=== PATIENT | female | born 1950 | race Caucasian/White ===

== ENCOUNTER → 2017-03-19 | Outpatient (CLI) | payer OTHER, MEDICARE | LOC: BMCIMAGING 12:10 | PROVIDERS: ATTEND Internal Medicine | DX: Z12.31 Encounter for screening mammogram for malignant neoplasm of breast (principal) | CPT/HCPCS: G0202 ==

== ENCOUNTER → 2017-11-05 | Outpatient (CLI) | payer OTHER, MEDICARE | LOC: BMCIMAGING 15:07 | PROVIDERS: ATTEND Orthopaedic Surgery Hand Surgery | DX: M19.041 Primary osteoarthritis, right hand (principal); R93.6 Abnormal findings on diagnostic imaging of limbs ==

== ENCOUNTER 2019-02-16 11:05 | Observation (INO) | payer MEDICARE, OTHER ==
--- NOTE | 2019-02-16 11:42 | EDPHY ---
General Time Seen by Provider: 02/16/19 11:42 Narrative: CLINICAL IMPRESSION: Cat bite, cellulitis, lymphangitis. ASSESSMENT/PLAN: Patient is a 68-year-old female with no significant medical history who presents to the emergency department with complaints of a cat bite with rapidly progressing redness. Patient is nontoxic-appearing, she is in no acute distress. Physical examination reveals area of erythema and pain overlying the volar aspect of the distal left forearm with cellulitis extending up to elbow. There was no evidence of large gaping wounds, bony involvement or neurovascular compromise. The patient started Augmentin yesterday, has had rapid progression since starting antibiotics. Baseline laboratory studies were obtained and unremarkable, patient was given IV Rocephin and Flagyl in the emergency department. X-ray with no acute findings. The area was marked. She will be admitted to the hospitalist service for further observation management, I spoke directly to Dr. Bello who will be the admitting physician.. DIFFERENTIAL DX: Differential diagnosis including but not limited to abscess, cellulitis, sepsis , systemic infection, necrotizing skin infection. ED COURSE: 1210: Case discussed with Dr. Cordero. 1212: Discussed with Lucio JAFFE hospitalist service, will admit to Dr. Bello CHIEF COMPLAINT: Cat bite, redness and pain HPI: Patient is a 68-year-old female with no significant medical history who presents to the emergency department with complaints of a cat bite, redness and pain. Patient reports she was bit by her cat yesterday morning. She noticed some redness around the site in the evening and went to Urgent Care. Patient was given Augmentin and has taken 2 doses however this morning had a rapid progression upper forearm and into her elbow. She is having increased pain, has not tried taking anything for pain. She denies any fever, nausea, vomiting , chest pain or shortness of breath. She denies any numbness or tingling of the extremity. She is experiencing some decreased range of motion secondary to the discomfort. She has no significant medical history and denies a history of MRSA. PMH: Denies Family History: Not contributory Social History: Occasional alcohol, denies illicit drug use or smoking. REVIEW OF SYSTEMS: All other systems negative Constitutional: No fever, no chills, appetite change. Eyes: No discharge, vision change ENT: No sore throat, congestion, ear pain. Cardiovascular: No chest pain, no palpitations. Respiratory: No cough, no shortness of breath. Gastrointestinal: No abdominal pain, no vomiting, diarrhea. Genitourinary: No hematuria, dysuria, flank pain. Musculoskeletal: Left wrist pain. Skin: Redness to left wrist. No rashes, color change. Neurological: No headache, dizziness, weakness. PHYSICAL EXAM: General Appearance: Well-appearing, no acute distress and not toxic-appearing. HENT: Normocephalic, atraumatic. Bilateral external ears are normal. Bilateral tympanic membranes are normal with pearly torres reflex. Nares are clear, mucosa is pink. Oropharynx is clear, uvula is midline. There is no tonsillar enlargement or exudate. The dentition is normal. Eyes: PERRLA, EOMI. Conjunctiva pink, no pallor or injection Neck: Supple, nontender, no lymphadenopathy, no midline pain, FROM, no meningismus. Respiratory: There are no retractions, lungs are clear to auscultation. Cardiac: Regular rate and rhythm, no murmurs or gallops. Gastrointestinal: Abdomen is soft, nontender, bowel sounds normal, no masses/ hernia, no rigidity, guarding or focal peritoneal findings. Neurological: Alert and oriented x 3, CN 2-12 grossly intact, normal sensation and strength Skin: Warm, dry. See below. Musculoskeletal: Left wrist with cat bite noted to the distal forearm just proximal to the wrist on the radial aspect. There is surrounding erythema extending up into the forearm with lymphangitis. Patient with tenderness at the site. No decreased range of motion. Radial pulses 2+. The radial, ulnar and median nerves were all tested. Radial nerve: Patient is able to extend wrist and fingers of the local joints. Ulnar nerve: Patient is able to abduct all fingers. Median nerve patient is able to oppose thumb to pinky. Psychiatric: Mood and affect are normal, there is no agitation. MEDICAL DECISION MAKING: Patient was seen independently. Secondary supervising physician at time of evaluation was Dr. Cordero, she did not evaluate this patient. Diagnosis: Cat bite, cellulitis, lymphangitis. Summary: See Assessment and Plan for summary of ED visit Clinical lab tests: ordered / reviewed. Independent visualization of images, tracing, or specimens: Yes. Decision to obtain medical records or history from someone other than the patient: No Review / Summarize previous medical records: Yes Discussed patient with another provider: Yes, Dr. Cordero Patient Progress: Stable, admit. - History Smoking Status: Never smoked - Objective Vital Signs: Initial Vital Signs Heart Rate 75 02/16/19 11:14 Respiratory Rate 16 02/16/19 11:14 Blood Pressure 136/73 H 02/16/19 11:14 O2 Sat (%) 97 02/16/19 11:14 O2 Delivery Mode Room Air Allergies/Adverse Reactions: No Known Allergies Allergy (Unverified 02/16/19 11:12) Home Medications: Medication Instructions Recorded Amoxicillin/Clavulanate Pot 875 mg PO BID 02/16/19 [Augmentin 875 MG TAB (*)] Compounded Immunotherapy Drops 3 drops SL DAILY 02/16/19 Herbals/Supplements -Info Only 1 ea PO DAILY 02/16/19 Multivitamins [Multivitamin (*)] 1 each PO DAILY 02/16/19 Triamcinolone Acetonide [Nasacort] 1 spray EACHNARE DAILY PRN 02/16/19 Medications Given: Ceftriaxone Sodium/Dextrose (Rocephin 1 Gm (Premix)) 50 mls @ 100 mls/hr IV Q12 BRITTANEY PRN Reason: Protocol Stop: 03/18/19 20:59 Last Admin: 02/16/19 20:34 Dose: 50 mls Metronidazole/Sodium Chloride (Flagyl 500 Mg (Premix)) 100 mls @ 100 mls/hr IV Q8HRS BRITTANEY PRN Reason: Protocol Stop: 03/18/19 21:59 Last Admin: 02/17/19 06:06 Dose: 100 mls Discontinued Medications Ceftriaxone Sodium/Dextrose (Rocephin 1 Gm (Premix)) 50 mls @ 100 mls/hr IV EDNOW ONE PRN Reason: Protocol Stop: 02/16/19 12:37 Last Admin: 02/16/19 12:52 Dose: 50 mls Metronidazole/Sodium Chloride (Flagyl 500 Mg (Premix)) 100 mls @ 100 mls/hr IV EDNOW ONE PRN Reason: Protocol Stop: 02/16/19 13:07 Last Admin: 02/16/19 13:46 Dose: 100 mls Metronidazole/Sodium Chloride (Flagyl 500 Mg (Premix)) 100 mls @ 100 mls/hr IV Q8HRS BRITTANEY PRN Reason: Protocol Stop: 03/18/19 13:59 Last Admin: 02/16/19 15:02 Dose: Not Given Ibuprofen (Motrin) 400 mg PO EDNOW ONE Stop: 02/16/19 12:04 Last Admin: 02/16/19 12:49 Dose: 400 mg Departure - Departure Clinical Impression: Lymphangitis Cat bite Qualifiers: Encounter type: initial encounter Qualified Code(s): W55.01XA - Bitten by cat, initial encounter Cellulitis Qualifiers: Site of cellulitis: extremity Site of cellulitis of extremity: upper extremity Laterality: left Qualified Code(s): L03.114 - Cellulitis of left upper limb
[2019-02-16] MEDS ORDERED: IBUPROFEN 200 MG TAB PO ONE (12:03)
[2019-02-16 12:37] LABS: PLATELET COUNT 196 10^3/uL (150-400)
[2019-02-16] MEDS ORDERED: ONDANSETRON DISINTEGRATING 4 MG TAB PO PRN (13:21)
[2019-02-16] MEDS ORDERED: ACETAMINOPHEN 325 MG TAB PO PRN (13:21)
[2019-02-16] MEDS ORDERED: ONDANSETRON 4 MG/2 ML VIAL IVP PRN (13:21)
[2019-02-16] MEDS ORDERED: TRIAMCINOLONE ACETONIDE EACHNARE PRN (13:22)
--- NOTE | 2019-02-16 13:57 | GHP ---
[f rep st] HISTORY AND PHYSICAL DATE OF ADMISSION: 02/16/2019 CHIEF COMPLAINT: Cat bite. HISTORY OF PRESENT ILLNESS: This is a 68-year-old female, presents with a cat bite. This occurred y esterday. She went to urgent care. Was prescribed amoxicillin. It has gotten significantly worse s jose then. It started off as a small area over her left palmar aspect of her wrist. There is now a streak extending down the forearm as well as some extending up into the very base of the left thumb a landon. She has normal feeling in the hand. She feels as though her sleeve machine tender strength is slightly decrease d, she believes due to pain when she exerts herself. She does not have any pain with passive range o f motion of her fingers or wrist. She has had no fevers. PAST MEDICAL/SURGICAL HISTORY: 1. Allergies. 2. Tonsillectomy. 3. Sinus polyp surgery. MEDICATIONS: Please see medication reconciliation. ALLERGIES: No known drug allergies. FAMILY HISTORY: Father had an NC. Her mother had Alzheimer's. SOCIAL HISTORY: She drinks wine. She does not smoke. REVIEW OF SYSTEMS: 10-point review of systems is conducted and is negative except per HPI. PHYSICAL EXAM: VITAL SIGNS: Blood pressure 157/98, heart rate 69, respiration rate 16, saturating 9 6% on room air, temperature 37.1. GENERAL: This is a very pleasant female who is resting comfortabl y. No acute distress. HEENT: Head, normocephalic, atraumatic. CARDIOVASCULAR: Regular rate and r hythm. No murmurs, rubs, or gallops. PULMONARY: Lungs clear to auscultation bilaterally. ABDOMEN: Soft, nontender, nondistended. SKIN: No rash. : No Abbott. NEUROLOGIC: Alert and oriented x3 . Moving all extremities. PSYCHIATRIC: Normal mood and affect. EXTREMITIES: Shows left extremity to have an area of erythema over the palmar aspect of her left wrist extending to the base of her le ft thumb. She has 1 streak up her left forearm. Her radial pulse is intact. Sensation to light adam ch is intact. Motor is slightly diminished in that hand, she believes due to pain. DATA: 1. Discussed with Dr. Cordero as well as Romana William. We will admit to Med/Surg. 2. I reviewed her wrist x-ray which shows no acute fracture, no radiopaque foreign bodies. No gas. IMPRESSION AND PLAN: Cat bite: She takes sublingual immunotherapy for asthma, I do not believe that is causing significant immunocompromise. These are typically allergens within the tablets. For now I think it is appropriate to continue Rocephin as well as Flagyl. Could consider changing back to U nasyn or Augmentin although she did fail outpatient Augmentin. I do not think she needs surgical chica ridement at this time. There is no evidence of deeper infection. I will reassess her later today. If the area of erythema is worsening, will obtain surgical consultation. She will be followed closel y as an inpatient on Med/Surg. She has no evidence of sepsis at this time. This is a high-risk diag nosis given the rapid progressive nature of it. /[id number]/MODL
[2019-02-17 05:27] LABS: PLATELET COUNT 177 10^3/uL (150-400)
[2019-02-17 08:47] VITALS: BP 119/71
[2019-02-17] MEDS ORDERED: [UNRECOGNIZED DRUG - OTHER] SL SCH (09:00)
--- NOTE | 2019-02-17 10:49 | PDIAF ---
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 PICC Care - Routine: N/A - Labs/Radiology Call or Fax Lab and Imaging Results to: Will call with scheduling time for follow up appt. - Follow Up Care Current Providers and Referrals: Shital Kahn MD [Primary Care Provider] - As per Instructions Angelic Portillo MD [Medical Doctor] - 02/19/19
--- NOTE | 2019-02-17 11:02 | ASMTDCNOTE ---
Case Management Discharge Discharge Order Complete? Answers: Yes Followup Appointment 02/18/2019 10:00 AM Patient to Obtain Answers: Other Notes: OP infusion center Medications Transportation Arranged Answers: Family/Friends Transport will Pick (Date 02/17/2019 12:00 AM & Time) Faxed Final Orders Answers: Yes Agency/Facility Transfer Answers: Yes Report Printed & Faxed to Receiving Agency Family Notified Answers: Yes Notes: by pt Discharge Comments Notes: CM discussed discharge with pt, RN, ID and hospitalist. Pt admitted for cat bite cellulitis and will discharge with 2-3 days of IV Ceftriaxone through the infusion center at [facility] with a PIV which was placed here in the hospital. CM made follow up appointment for pt and wrote in discharge paperwork. Pt lives with and is normally independent No further CM needs noted at this time. Date Signed: 02/17/2019 11:02 AM Electronically Signed By:Roxie Zamora. SHIRIN
--- NOTE | 2019-02-17 11:05 | ASDISCHSUM ---
Discharge Information Plan Status:Home with No Needs Medically Cleared to Leave:02/17/2019 Discharge Date:02/17/2019 CM D/C Disposition:Home, Routine, Self-Care ADT D/C Disposition: Projected Discharge Date:02/17/2019 Transportation at D/C:Family Discharge Delay Reason: Follow-Up Date:02/17/2019 Discharge Slot: Final Diagnosis:cat bite cellulitis Placement Information Patient Contact Information Contact Name:RADHA Relationship: Address:[address] City:[place] Alternate Phone: State/Zip Code:[place] [address] Email: Financial Information Financial Class:Medicare Advantage Plans Primary Plan Desc:[facility] ADVANTAGE PLANS Primary Plan Number:[id number] Secondary Plan Desc: Secondary Plan Number: Assessment Information Case Management Discharge Plan Note Case Management Discharge Discharge Order Complete? Answers: Yes Followup Appointment 02/18/2019 10:00 AM Patient to Obtain Answers: Other Notes: OP infusion center Medications Transportation Arranged Answers: Family/Friends Transport will Pick (Date 02/17/2019 12:00 AM & Time) Faxed Final Orders Answers: Yes Agency/Facility Transfer Answers: Yes Report Printed & Faxed to Receiving Agency Family Notified Answers: Yes Notes: by pt Discharge Comments Notes: CM discussed discharge with pt, RN, ID and hospitalist. Pt admitted for cat bite cellulitis and will discharge with 2-3 days of IV Ceftriaxone through the infusion center at [facility] with a PIV which was placed here in the hospital. CM made follow up appointment for pt and wrote in discharge paperwork. Pt lives with and is normally independent No further CM needs noted at this time. Date Signed: 02/17/2019 11:02 AM Electronically Signed By:Roxie Zamora. SHIRIN LACE LACE Length of stay for Answers: Less than 1 day current admission Acuity / Level of Answers: No Care: Did the patient have an inpatient admission? Comorbidities - select Answers: Other Notes: cellulitis all that apply # of Emergency department Answers: 1-2 visits in the last 6 months Score: 2 Date Signed: 02/17/2019 11:04 AM Electronically Signed By:Roxie Zamora. SHIRIN Intervention Information
--- NOTE | 2019-02-17 11:20 | GDS ---
[f rep st] DISCHARGE SUMMARY FINAL DIAGNOSES: 1. Cat bite with cellulitis. 2. Asthma on sublingual immunotherapy. HOSPITAL COURSE: A 68-year-old female, admitted after a cat bite. This had happened the day before. She had been prescribed Augmentin as an outpatient. However, the erythema had worsened. She was p laced on Rocephin and Flagyl with significant improvement. She was seen by Infectious Disease, who r ecommended a few more days of IV Rocephin to be delivered as an outpatient in the infusion clinic. S he will follow up with Dr. Portillo 2 days after discharge for reassessment. She will follow up with Nikky Kahn next week for her annual primary care visit. She was prescribed an additional 5 days of Fla gyl. She is comfortable with this plan and anxious for discharge. She had no evidence of neurovascu lar compromise. /[id number]/MODL
--- NOTE | 2019-02-17 13:10 | GCON ---
[f rep st] CONSULTATION INFECTIOUS DISEASE CONSULTATION PHYSICIAN REQUESTING CONSULTATION: Doug Bello MD REASON FOR CONSULTATION: Left upper extremity cellulitis related to a cat bite. HISTORY OF PRESENT ILLNESS: A 68-year-old woman with minimal medical problems, was in her usual state of health until approximately 9:00 to 10:00 a.m. on Sunday02/15/19 when she sustained a cat bite from her own vaccinated cat. She washed the wound and applied antibiotic ointment and then proceeded to a festival. She started noticing redness in this area on the same day of injury, she presented to Urgent Care in the evening where they started her on Augmentin 875mg BID. She took her first dose that evening and on the , elevated her arm took a second dose, but the erythema continued to spread. Therefore, she returned to Urgent Care, who recommended that she present to the emergency room. In the emergency room, the patient was noted to have erythema on the medial aspect of her left forearm with associated lymphangitis. The patient did not have signs or symptoms of joint involvement or tenosynovitis in the emergency room. Therefore, she was admitted to the hospital and started on IV ceftriaxone and metronidazole. After receiving her first dose of ceftriaxone in 3 hours, the patient was symptomatically improved. Further, today, she has moderate improvement compared to yesterday, with increased ability to make a fist with her left hand and complete resolution of pain. Erythema is still present and has expanded past 1 of the lines on the medial aspect of her arm. Since starting IV ceftriaxone, the patient has had 2 looser stools, but she would not characterize as bothersome. No abdominal pain , fevers, chills. Yesterday, the patient had a very poor appetite and this morning, her appetite has returned and she had a normal breakfast without difficulty. The patient's tetanus vaccination was 02/11/2013. She underwent a wrist x-ray in the emergency room that showed no fracture or foreign body. ALLERGIES: The patient has seasonal as well as cat allergies, for which she takes sublingual therapy to prevent allergies. MEDICATIONS: Ceftriaxone 1 g IV daily started 02/16. She also was on metronidazole 500 mg IV 8. She was on p.r.n. Zofran and Tylenol. PAST SURGICAL HISTORY: She had a tonsillectomy. SOCIAL HISTORY: The patient is physically active. No recent international travel. She does drink alcohol. No tobacco. FAMILY HISTORY: Positive for coronary artery disease and Alzheimer's. REVIEW OF SYSTEMS: A complete 10-point review of systems was performed and is negative, except as mentioned in the HPI. PHYSICAL EXAM: VITAL SIGNS: Blood pressure 119/71, heart rate 67, saturation is 96% on room air, temperature 36.7. She has been afebrile throughout her hospital course. GENERAL: This is a pleasant, articulate woman sitting up in bed, in no acute distress. Fluent speech. HEENT: Pupils are reactive bilaterally. No conjunctival hemorrhage. Excellent dentition. Moist mucous membranes. NECK: Supple. CARDIOVASCULAR: Regular rate and rhythm, with a late a 2/6 systolic murmur. CHEST: Clear to auscultation bilaterally. ABDOMEN : Soft, nontender. EXTREMITIES: Her left upper extremity revealed a puncture along the volar aspect of her wrist with erythema streaking proximally, but appeared to have faded. There was a line drawn around it with 1 side. The erythema had expanded past that area. There was no crepitus. The range of motion of her wrist was intact. Her meeting/event planner was 98% within normal limits. No tenderness. No purulence was able to be expressed from puncture site. There was mild warmth persistent. Radial pulse was 2+. Capillary refill was normal. Hand neurologic exam as above. NEUROLOGICAL: She was alert and oriented x4. LABORATORY: White count 6.1, hematocrit 36, platelets 177, 48% neutrophils, 39 % lymphocytes. Creatinine 0.83. ASSESSMENT AND PLAN: 68-year-old woman who sustained a cat bite on her left wrist from her own vaccinated cat when the cat was chasing a rabbit which was on the outside. She rapidly developed cellulitis and lymphangitis, but notably today without clear signs of tenosynovitis or joint involvement on exam. Plain films are negative. The patient had significant improvement to IV ceftriaxone, but still fair amount of erythema persists. Would recommend continuing coverage for pasteurella, Streptococcus, Staphylococcus aureus and oral anaerobes. Pathogens source both cat's mouth as well as inoculation from the skin. I would recommend ongoing IV antibiotic therapy for another day or 2 with reassessment. This could be accomplished in the IV Infusion Center. The patient is to continue IV ceftriaxone daily and will transition metronidazole to 500 mg p.o. 3 times daily. The patient was given education about side effects of ceftriaxone and metronidazole and avoidance of alcohol. Further, the patient was educated regarding the potential risk for C difficile and if worsening diarrhea, abdominal pain, fever, she should notify our office immediately. May be able to step-down to back to Augmentin orally as her worsening disease did not likely reflect in appropriate coverage, may have been just due to need for higher drug levels with IV therapy. Greater than 70 minutes spent on this patients care, greater than 50% of time spent counseling, educating, and coordinating care regarding the above mentioned plan. Reviewing the pathogenesis of disease, lack of signs of tenosynovitis at the time of my exam but continuing concern for need for surgical intervention going forward until more significant improvement. Care was coordinated with hospitalist and Case Management. The patient is to follow up in our office in 2 days. /[id number]/MODL MTDD
== END 2019-02-17 12:00 | disposition home or self-care (01) ==
LOC: F3N 12:14
PROVIDERS: ADMIT Student in an Organized Health Care Education/Training Program; ATTEND Student in an Organized Health Care Education/Training Program
DX: S51.832A Puncture wound without foreign body of left forearm, initial encounter (principal); T79.8XXA Other early complications of trauma, initial encounter; L03.114 Cellulitis of left upper limb; L03.124 Acute lymphangitis of left upper limb; W55.01XA Bitten by cat, initial encounter
CPT/HCPCS: 73110; 96365; 99285; G0378; J0696

== ENCOUNTER → 2019-03-17 | Outpatient (CLI) | payer OTHER | LOC: BMCIMAGING 13:16 ==